=== PATIENT | male | born 1960 ===

== ENCOUNTER 2022-01-05 07:33 | Inpatient (IN) | payer OTHER ==
[~2022-01-05] VITALS: Ht 182.9 cm; Wt 110.1 kg
[2022-01-05 08:05] LABS: Source, Urine Foley catheter
[2022-01-05 08:21] LABS: PCO2 Venous 66.3 mmHg (38-42); PO2 Venous 138 mmHg (38-42); pH Blood Venous 7.15 (7.34-7.37)
[2022-01-05 08:22] LABS: Hematocrit 34.8 % (37.0-53.0); Hemoglobin 11.4 g/dL (13.5-17.5); Mean Corpuscular HGB 30.1 pg (26.0-34.0); Mean Corpuscular HGB Conc 32.8 g/dL (31.5-36.5); Mean Corpuscular Volume 92 fL (80-100); Mean Platelet Volume 10.1 fL (9.1-12.4); Platelet Count 224 K/mm3 (150-400); RDW Coefficient Variation 12.3 % (11.7-14.2); RDW Standard Deviation 41.3 fL (35.1-46.3); Red Blood Cell Count 3.79 M/mm3 (4.30-5.90); White Blood Cell Count 2.36 K/mm3 (4.00-11.30)
[2022-01-05 08:24] LABS: Appearance, Urine Hazy (Clear); Bilirubin, Urine Neg (Neg); Blood, Urine 5+ (Neg); Color, Urine Yellow (P-Yellow); Glucose Qualitative, Urine 4+ (Neg); Ketones, Urine 1+ (Neg); Leukocyte Esterase, Urine Neg (Neg); Nitrite, Urine Neg (Neg); Protein, Urine 3+ (Neg); Urobilinogen, Urine NORM (Normal)
[2022-01-05 08:35] LABS: Red Blood Cells, Urine 50-100 /hpf (0-2)
[2022-01-05 08:36] LABS: Amorphous Mod (0-Heavy); Bacteria Few /hpf; Squamous Epithelial Cells Rare /hpf (Few)
[2022-01-05 08:45] LABS: Albumin, Blood 1.5 g/dL (3.4-5.0); Albumin/Globulin Ratio 0.4 (0.8-1.8); Bilirubin, Total 0.4 mg/dL (0.1-1.0); Bun/Creatinine Ratio 11.9 (12.0-20.0); Calcium, Blood 7.1 mg/dL (8.5-10.1); Creatinine, Blood 2.36 mg/dL (0.60-1.20); Globulin, Blood 3.7 g/dL (2.2-4.0); Potassium, Blood 4.6 mmol/L (3.5-5.5); Total Protein, Blood 5.2 g/dL (6.4-8.2)
[2022-01-05 08:46] LABS: BAND PERCENT MAN 28 % (0-8); BASOPHILS PERCENT MAN 0 % (0-2); EOSINOPHILS PERCENT MAN 0 % (0-6); LYMPHOCYTES % ATYPICAL MANUAL 1 % (0-0); LYMPHOCYTES ABSOLUTE MAN 0.75 K/mm3 (0.84-5.20); LYMPHOCYTES PERCENT MAN 31 % (21-46); METAMYELOCYTE ABSOLUTE MAN 0.07 K/mm3 (0.00-0.00); METAMYELOCYTE PERCENT MAN 3 % (0-0); MONOCYTES ABSOLUTE MAN 0.14 K/mm3 (0.16-1.47); MONOCYTES PERCENT MAN 6 % (4-13); MYELOCYTE ABSOLUTE MAN 0.14 K/mm3 (0.00-0.00); MYELOCYTE PERCENT MAN 6 % (0-0); NEUTROPHILS ABSOLUTE MAN 1.25 K/mm3 (1.96-9.15); SEG NEUTROPHILS PERCENT MAN 25 % (41-73); TOTAL CELLS COUNTED 100
[2022-01-05 09:03] LABS: International Normalized Ratio 1.12; Prothrombin Time Results 11.7 Sec (9.7-11.5)
[2022-01-05 09:56] LABS: Influenza B, PCR NEGATIVE (NEGATIVE); Resp Syncytial Virus, PCR NEGATIVE (NEGATIVE); SARS-Cov-2 (COVID-19) PCR, MMC NEGATIVE (NEGATIVE)
[2022-01-05 09:58] LABS: Influenza A, PCR POSITIVE (NEGATIVE)
--- NOTE | 2022-01-05 10:43 | NUR ---
ARRIVAL TO ICU PT ARRIVES FROM [facility] VIA [facility] FOR SEPSIS AND RESP FAILURE AT 0720. ARRIVES INTUBATED AND SEDATED. CURRENT VENT SETTINGS AC/VC+ 20/450/8/65%. LUNGS COARSE, SCANT PINK SECRETIONS. TUBE RESECURED, 8.0/26 AT TEETH. PROPOFOL STARTED FOR SEDATION. NO COUGH/GAG/SWALLOW. DOES NOT WITHDRAW TO PAINFUL STIMULI. ATTEMPTED TO DECREASE SEDATION, INCREASED RR, WILL DISCUSS c DR PAREKH. SR, RATE 90'S. LEVO AND VASO GTT FOR MAP>65. MOTTLING TO KNEES AND BLE. FAINT PULSES, DELAYED CAP REFILL. OGT CLAMPED AFTER MEDS. BURT PATENT, OLIGURIC. CVC TO RIJ, DRESSING C/D/I. PIV X 2. WILL CONTINUE TO MONITOR.
--- NOTE | 2022-01-05 11:00 | NUR ---
CALL TO [facility]'S DISPATCH, REQUESTED AN OFFICER TO GO TO PT'S LISTED HOME ADDRESS AND ATTEMPT TO REACH FAMILY FOR THE PT. THEY STATED THEY HAVE DISPATCHED AN OFFICER AND WILL ATTEMPT TO LOCATE.
[2022-01-05 11:23] LABS: Base Excess Venous -7.3 mmol/L; PCO2 Venous 51.2 mmHg (38-42)
[2022-01-05 11:25] LABS: pH Blood Venous 7.21 (7.34-7.37)
--- NOTE | 2022-01-05 11:48 | NUR ---
UPDATE PT CONTINUES TO HAVE MINIMALLY ACCEPTABLE MAP~65, MOTTLING WORSE, ETCO2 DECREASING. DR PAREKH UPDATED. 1L LR INFUSED, 2 AMPS BICARB GIVEN, REPEAT VBG. PT ALSO FEBRILE, MAX 104.1, TYLENOL GIVEN, FANS AND ICE APPLIED. INSULIN GTT STARTED. EPI GTT STARTED. MEAT BLENDER CONTINUE TO ATTEMPT TO REACH FAMILY UNSUCCESSFULLY.
--- NOTE | 2022-01-05 13:04 | NUR ---
Pt resting in bed and intubated. Spoke with Primary RN Malinda. SO Veronica contacted and she will attempt to obtain transportation to visit Pt. Pt requiring 3 pressors and is running a fever. Attempted to contact Veronica, left message with request for a return phone call. SO Veronica [phone]
[2022-01-05 13:16] LABS: Bicarbonate Venous 19.8 mmol/L (24.0-30.0); PCO2 Venous 49 mmHg (38-42); pH Blood Venous 7.26 (7.34-7.37)
[2022-01-05 13:48] LABS: Bun/Creatinine Ratio 11.2 (12.0-20.0); Calcium, Blood 7.2 mg/dL (8.5-10.1); Creatinine, Blood 2.86 mg/dL (0.60-1.20); Potassium, Blood 4.4 mmol/L (3.5-5.5)
--- NOTE | 2022-01-05 17:03 | NUR ---
SO Veronica has arrived. Pt resting in bed and remains intubated. Spoke with Primary RN Malinda who reports no changes to Pt's condition. Still requiring 3 pressors with elevated temperature. Veronica at bedside. Provided update and reviewed plan of care. Offered therapeutic listening as Veronica reports not being to Pt but they have been together for 7 years. She reports Pt does not have children but does have a brother who lives in [facility]. Engaged in therapeutic discussion regarding code status wishes. Veronica reports being unsure of his wishes for CPR and is hoping Pt's brother can assist. Obtained phone number from Veronica. Attempted to call Pt's brother Rebel Raza. Number is a work number. Left message with request for a return phone call. Palliative Care will remain available.
--- NOTE | 2022-01-05 18:14 | NUR ---
SHIFT SUMMARY PT REMAINS INTUBATED AND SEDATED. VENT SETTINGS AC/VC 20/450/8/100%. PT HAD EPISODE OF POOR PERFUSION AND WAVE FORM OF O2 SATS. PLACED MULTIPLE DIFFERENT PROBES s SUCCESS. INCREASED FIO2 TO 100%. DR PAREKH AT BEDSIDE. ABG PERFORMED. WILL CONTINUE FIO2 AT 100%, O2 SAT ON MONITOR READS 60-70%. LUNGS DIM THROUGHOUT. 1 DEGREE BLOCK, RATE 80'S. LEVO, VASO AND EPI GTT FOR MAP>65. MOTTLING CONTINUE TO PROGRESS, WORSE ON RIGHT LEG, UP TO KNEES. HANDS ALSO COOL AND MOTTLED NOW. PROPOFOL GTT DECREASED TO 10 MCG/KG/MIN, CONTINUES TO BE UNRESPONSIVE. 45 ML CLOUDY URINE OUT THIS SHIFT. BURT PATENT, DRAINING TO GRAVITY. TMAX 104.1, NOW 101.4. INSULIN GTT. CVC TO MAJ, WILL CONTINUE TO MONITOR.
[2022-01-05 18:16] LABS: PCO2 Arterial 51.8 mmHg (35-45); PO2 Arterial 116 mmHg (80-100); pH Blood Arterial 7.17 (7.35-7.45)
--- NOTE | 2022-01-05 19:15 | NUR ---
ASSUMED CARE OF PT @1900 FROM CHRISTIANO GARCIA. PT SEDATED AND INTUBATED. PROPOFOL 10MCG/KG/MIN, VENT AC VC 20/450/8/100%, ETT 8.0/26 @TEETH. RR 20, SPO2 85-93%, LEVOPHED 20MCG/MIN, VASOPRESSIN 0.04 U/MIN, EPI 15MCG/MIN, HR 80'S, SBP 80-90'S, MAP 60'S. INSULIN 24U/HR. RIJ INFUSING, IV 20GA RAC AND LAC PATENT W/SALINE LOCK. BSWR IN PLACE. BURT CATH IN PLACE.
[2022-01-05 21:34] LABS: Bun/Creatinine Ratio 10.4 (12.0-20.0); Calcium, Blood 7.6 mg/dL (8.5-10.1); Creatinine, Blood 3.35 mg/dL (0.60-1.20)
[2022-01-05 22:17] LABS: PCO2 Arterial 68.5 mmHg (35-45); PO2 Arterial 91.8 mmHg (80-100)
[2022-01-05 22:18] LABS: pH Blood Arterial 7.05 (7.35-7.45)
--- NOTE | 2022-01-05 22:30 | NUR ---
CRITICAL VALUE TAKEN. DR PAREKH NOTIFIED. ORDERS UPDATED.
[2022-01-06 04:41] LABS: Hematocrit 42.2 % (37.0-53.0); Hemoglobin 13.8 g/dL (13.5-17.5); Mean Corpuscular HGB 30.3 pg (26.0-34.0); Mean Corpuscular HGB Conc 32.7 g/dL (31.5-36.5); Mean Corpuscular Volume 93 fL (80-100); Mean Platelet Volume 10.3 fL (9.1-12.4); NRBC ABSOLUTE 0.02 K/mm3 (0.00-0.02); NRBC Auto 0.4 /100 WBC (0.0-0.2); Platelet Count 181 K/mm3 (150-400); RDW Coefficient Variation 12.5 % (11.7-14.2); RDW Standard Deviation 42.7 fL (35.1-46.3); Red Blood Cell Count 4.55 M/mm3 (4.30-5.90); White Blood Cell Count 5.14 K/mm3 (4.00-11.30)
[2022-01-06 05:03] LABS: Albumin, Blood 1.3 g/dL (3.4-5.0); Albumin/Globulin Ratio 0.3 (0.8-1.8); Bun/Creatinine Ratio 9.2 (12.0-20.0); Calcium, Blood 7.8 mg/dL (8.5-10.1); Creatinine, Blood 4.25 mg/dL (0.60-1.20); Globulin, Blood 4.5 g/dL (2.2-4.0); Potassium, Blood 3.9 mmol/L (3.5-5.5); Total Protein, Blood 5.8 g/dL (6.4-8.2)
[2022-01-06 05:07] LABS: Base Excess Venous -11.2 mmol/L; Bicarbonate Venous 14.3 mmol/L (24.0-30.0)
[2022-01-06 05:08] LABS: pH Blood Venous 6.95 (7.34-7.37)
[2022-01-06 05:15] LABS: BAND PERCENT MAN 29 % (0-8); BASOPHILS PERCENT MAN 0 % (0-2); EOSINOPHILS PERCENT MAN 0 % (0-6); LYMPHOCYTES % ATYPICAL MANUAL 3 % (0-0); LYMPHOCYTES ABSOLUTE MAN 2.67 K/mm3 (0.84-5.20); LYMPHOCYTES PERCENT MAN 49 % (21-46); METAMYELOCYTE ABSOLUTE MAN 0.41 K/mm3 (0.00-0.00); METAMYELOCYTE PERCENT MAN 8 % (0-0); MONOCYTES ABSOLUTE MAN 0.15 K/mm3 (0.16-1.47); MONOCYTES PERCENT MAN 3 % (4-13); MYELOCYTE PERCENT MAN 2 % (0-0); NEUTROPHILS ABSOLUTE MAN 1.79 K/mm3 (1.96-9.15); SEG NEUTROPHILS PERCENT MAN 6 % (41-73); TOTAL CELLS COUNTED 100
--- NOTE | 2022-01-06 06:57 | NUR ---
SUMMARY: NEURO/PSYCH/MOBILITY: PT WEANED OFF PROPOFOL. NO PURPOSFUL MOVEMENTS. DOES NOT RESPOND TO NOXIOUS STIMULI. NO COUGH, GAG, OR SWALLOW W/OC. PUPILS REMAIN SMALL AND FIXED. RESTRAINTS DC'D. TMAX 102.2 AND TREATED W/PRN TYLENOL, ICE PACKS, AND FAN. MAX ASSIST FOR ALL ADL'S AND REPOSITIONING. RESP: INTUBATED. VENT AC VC 20/450/8/100%. RR <20, SPO2 >88%. LUNGS DIM THROUGHOUT. CARDIAC: CONTINUOUS CARDIAC MONITORING. LEVOPHED TITRATED TO 25MCG/MIN, VASO 0.04 U/MIN, EPI TITRATED TO 5MCG/MIN. HR 90'S THROUGHOUT SHIFT. SPIKED INTO THE 130'S AROUND 0600. SBP 60-80'S. EXTREMETIES REMAIN MOTTLED. RADIAL PULSES PALPATED FAINTLY. PEDAL PULSES DOPPLER. NO EDEMA NOTED. GI: OG TUBE LIS WHEN MEDICATIONS NOT IN TUBE. NO BM THIS SHIFT. HYPOACTIVE BOWEL SOUNDS IN ALL 4 QUADRANTS. : BURT CATH REPLACED W/16F TEMP BURT. URINALYSIS UNABLE TO BE COLLECTED THIS SHIFT DUE TO OLIGURIA. SKIN: ASSESSMENT REMAINS UNCHANGED. CL RIJ PATENT AND INFUSING. IV 20GA LAC PATENT AND INFUSING.
[2022-01-06 08:10] LABS: Source, Urine Foley catheter
[2022-01-06 08:16] LABS: Appearance, Urine Cloudy (Clear); Bilirubin, Urine Neg (Neg); Blood, Urine 5+ (Neg); Color, Urine Yellow (P-Yellow); Glucose Qualitative, Urine 3+ (Neg); Ketones, Urine Neg (Neg); Leukocyte Esterase, Urine Neg (Neg); Nitrite, Urine Neg (Neg); Protein, Urine 3+ (Neg); Urobilinogen, Urine NORM (Normal)
[2022-01-06 08:25] LABS: Amorphous Mod (0-Heavy); Bacteria Many /hpf; Red Blood Cells, Urine 25-50 /hpf (0-2)
[2022-01-06 08:26] LABS: White Blood Cells, Urine 0-2 /hpf (0-5)
[2022-01-06 08:28] LABS: Squamous Epithelial Cells Rare /hpf (Few)
--- NOTE | 2022-01-06 09:28 | NUR ---
ASSUMED CARE REPORT FROM SONAM/CELSO RN AT 0700. PT INTUBATED. NO SEDATION RUNNING. VENT SETTINGS AC/VC 24/450/8/100%. LUNGS DIM THROUGHOUT. NO SECRETIONS. PT OVERBREATHS VENT, RR 26. NO COUGH/GAG/SWALLOW, DOES NOT WITHDRAW FROM PAIN. NO CORNEAL REFLEX. NO MOVEMENT NOTED TO EXT. 1 DEGREE AV BLOCK, RATE 110'S. PULSES BY DOPPLER. LEVO, VASO, EPI GTT INFUSING FOR MAP>65. MOTTLING TO BLE, WORSE ON RLE, ALSO MOTTLED TO HAND. SKIN COOL. TEMP 101.2. FAN IN PLACE. ABD ROUND, SOFT, NON TENDER. HYPOACTIVE BT. OLIGURIC. TEMP PROBE BURT PATENT, DRAINING TO GRAVITY. INSULIN GTT INFUSING. q1 HR CBG. BICARB GTT. CVC TO RIJ. DRESSING C/D/I. WILL CONTINUE TO MONITOR.
[2022-01-06 10:22] LABS: Bicarbonate Venous 20.5 mmol/L (24.0-30.0); PCO2 Venous 61.6 mmHg (38-42); pH Blood Venous 7.21 (7.34-7.37)
[2022-01-06 12:50] LABS: Base Excess Venous -4.8 mmol/L; Bicarbonate Venous 19.7 mmol/L (24.0-30.0); PCO2 Venous 54.2 mmHg (38-42); pH Blood Venous 7.23 (7.34-7.37)
--- NOTE | 2022-01-06 14:27 | NUR ---
SHIFT SUMMARY/REPORT TO JOY NO ACUTE CHANGES THIS SHIFT. VENT SETTINGS ADJUSTED, AC/VC 24/560/10/100%. LUNGS DIM. NO SECRETIONS. REMAINS ON PRESSORS, LEVO, VASO AND EPI, NO ESCALATION OF PRESSORS PER DR PAREKH. INSULIN GTT OFF, CBG NOW q4. NEURO UNCHANGED, NO RESPONSE OTHER THAN BREATHING OVER VENT. HEAD CT COMPLETE THIS SHIFT. FEBRILE, TYLENOL GIVEN, FANS AND ICE. NO URINE OUTPUT. LEGS AND HAND CONTINUE TO BE COOL AND MOTTLED. REPORT TO JOY FOR REMANDER OF SHIFT.
--- NOTE | 2022-01-06 15:00 | NUR ---
ASSUMED CARE OF PT AT THIS TIME. PT CONTINUES TO BE HYPOTENSIVE DESPITE MAX ADMIN OF PRESSORS. STILL ATTEMPTING TO CONTACT FURTHER FAMILY.
--- NOTE | 2022-01-06 17:05 | NUR ---
SPOKE WITH PT BROTHER IN [place] UPDATED ON PT CONDITION AND CONNECTED PT BROTHER WITH PALLIATIVE CARE.
--- NOTE | 2022-01-06 17:48 | NUR ---
Message left for pt's brother Rebel, and he did return the call. He was tearful upon finding out the brother's current situation, but states he's not completely suprised either. States pt's health was "not great". Rebel is planning to fly to [place] tomorrow from [place], and has concerns if pt passes away before he arrives. He states he has been paying the pt's utility bills and rent for quite some time, and is currently having financial hardships himself. He asked how to pick a mortuary if there is no "for sure" payer source. Per Nursing Climate Change Analyst, there is a rotation of homes in [facility], and the next one in line is called when there isn't one chosen. I relayed this information to Rebel, who states he will check in with ICU when he arrives tomorrow, and will see pt if he is still with us. If not, he will need to know which mortuary to call. Condolences given. Palliative care will remain available.
--- NOTE | 2022-01-06 19:15 | NUR ---
ASSUMED CARE OF PT @1900 FROM JOY GARCIA. PT INTUBATED, ETT 8.0, 27@LIPS, AC VC 24/560/10/100%. RR 24, UNABLE TO ATTAIN SPO2. CONTINUOUS CARDIAC MONITORING. LEVOPHED 25MCG/MIN, EPI 6MCG/MIN, VASOPRESSIN 0.04U/MIN, SODIUM BICARB 100MLS/HR. HR 80'S, SBP 60-80'S, MAP 40'S. RIJ CL PATENT AND INFUSING. IV 20GA LAC PATENT W/SALINE LOCK. TEMP BURT DRAINING SMALL AMOUNT OF URINE TO GRAVITY. ICE BAGS AND FAN ON PT FOR FEVER.
--- NOTE | 2022-01-06 19:26 | NUR ---
SHIFT SUMMARY NO ACUTE CHANGES, PT CONTINUES TO DECLINE T/O SHIFT IN REGARDS TO BP AND PERFUSION. EXTREM REMAIN COLD AND MOTTLED. CONTINUES TO HAVE PRESSORS INFUSING SEE FLOWSHEET. NO ESCALATION IN CARE PER DR. PAREKH. PT. FAMILY UPDATED ON CONDTION. REPORT TO ONCOMING NURSE.
--- NOTE | 2022-01-06 19:30 | NUR ---
ADRIENNE MAURICE ON TELEPHONE AND GAVE UPDATE ON PT CONDITION. SHE LIVES IN [place] AND IS CONCERNED ABOUT DRIVING IN THE WEATHER THEIR CAR IS NOT RELIABLE AND SHE HAS NOT DRIVEN IN MANY YEARS. DISCUSSED SITUATION AND SAFETY, SHE WILL WAIT UNTIL MORNING AND RIDE DOWN WITH PT'S BROTHER. WE WILL CALL W/ANY UPDATES IN PT CONDITION.
[2022-01-07 00:38] LABS: Albumin/Globulin Ratio 0.3 (0.8-1.8); Bilirubin, Total 1.3 mg/dL (0.1-1.0); Calcium, Blood 6.8 mg/dL (8.5-10.1); Creatinine, Blood 4.91 mg/dL (0.60-1.20); Globulin, Blood 3.9 g/dL (2.2-4.0); Potassium, Blood 6.1 mmol/L (3.5-5.5); Total Protein, Blood 4.9 g/dL (6.4-8.2)
--- NOTE | 2022-01-07 01:01 | NUR ---
UPDATE: 2299: CBG CL OF 29, HYPOGLYCEMIA PROTOCOL FOLLOWED, GAVE 50MLS 50% DEXTROSE IV. RECHECK LABS DRAWN 1 HOUR POST DEXTROSE. 2357: LAB CALLED CH POTASSIUM 6.1, BG HIGH @377, CA LOW @6.8, DR SNIDER CALLED AND UPDATED. ORDERS FOR REGULAR INSULIN 10 UNITS IV NOW AND RECHECK CBG W/MORNING LABS.
--- NOTE | 2022-01-07 02:56 | NUR ---
ADRIENNE MAURICE ON TELEPHONE AND GAVE UPDATE.
[2022-01-07 03:11] LABS: Vancomycin, Trough 31.3 ug/mL (5.0-10.0)
[2022-01-07 03:16] LABS: Hematocrit 35.8 % (37.0-53.0); Hemoglobin 11.9 g/dL (13.5-17.5); Mean Corpuscular HGB 30.1 pg (26.0-34.0); Mean Corpuscular HGB Conc 33.2 g/dL (31.5-36.5); Mean Corpuscular Volume 90 fL (80-100); NRBC ABSOLUTE 0.13 K/mm3 (0.00-0.02); NRBC Auto 2.4 /100 WBC (0.0-0.2); Platelet Count 73 K/mm3 (150-400); RDW Coefficient Variation 12.9 % (11.7-14.2); RDW Standard Deviation 42.7 fL (35.1-46.3); Red Blood Cell Count 3.96 M/mm3 (4.30-5.90); White Blood Cell Count 5.47 K/mm3 (4.00-11.30)
[2022-01-07 03:32] LABS: Albumin/Globulin Ratio 0.2 (0.8-1.8); Bilirubin, Total 1.3 mg/dL (0.1-1.0); Bun/Creatinine Ratio 9.9 (12.0-20.0); Creatinine, Blood 5.13 mg/dL (0.60-1.20); Potassium, Blood 6.1 mmol/L (3.5-5.5)
[2022-01-07 06:06] LABS: BAND PERCENT MAN 45 % (0-8); BASOPHILS PERCENT MAN 0 % (0-2); EOSINOPHILS PERCENT MAN 0 % (0-6); LYMPHOCYTES ABSOLUTE MAN 1.96 K/mm3 (0.84-5.20); LYMPHOCYTES PERCENT MAN 32 % (21-46); METAMYELOCYTE ABSOLUTE MAN 0.21 K/mm3 (0.00-0.00); METAMYELOCYTE PERCENT MAN 4 % (0-0); MONOCYTES ABSOLUTE MAN 0.27 K/mm3 (0.16-1.47); MONOCYTES PERCENT MAN 5 % (4-13); MYELOCYTE PERCENT MAN 2 % (0-0); NEUTROPHILS ABSOLUTE MAN 2.89 K/mm3 (1.96-9.15); SEG NEUTROPHILS PERCENT MAN 8 % (41-73); TOTAL CELLS COUNTED 100
[2022-01-07 06:10] LABS: LYMPHOCYTES % ATYPICAL MANUAL 4 % (0-0)
--- NOTE | 2022-01-07 06:33 | NUR ---
SUMMARY NEURO/PSYCH/MOBILITY: NO CHANGES OVERNIGHT. PT DOES NOT RESPOND TO NOXIOUS STIMULI OR ORAL CARE. NO PURPOSEFUL MOVEMENT/FLACCID EXTREMETIES. PUPILS FIXED AND UNEQUAL. NO EYE MOVEMENT. TMAX 102.1. TYLENOL GIVEN. PT MAX ASSIST FOR ALL ADL'S. RESP: DIM LUNG SOUNDS THROUGHOUT. PT IS OVER BREATHING THE VENT. RR 26, UNABLE TO ATTAIN SPO2 READING. AC VC 24/260/10/100. CARDIAC: CONTINUOUS CARDIAC MONITORING. HR AFIB 70-80'S, SBP 80-120'S, MAP 40-70'S, EPINEPHERINE 6MCG/MIN, LEVOPHED 25MCG/MIN, VASOPRESSIN 0.04U/MIN. GI: OG TUBE CLAMPED. HYPOACTIVE BT. NO BM THIS SHIFT. : TEMP BURT DRAINING TO GRAVITY. OLIGURIC. SKIN: ASSESSMENT REMAINS UNCHANGED. COCCYX MEPILEX CHANGED. RIJ CL PATENT AND INFUSING. IV 20GA LAC PATENT W/SALINE LOCK.
--- NOTE | 2022-01-07 06:45 | NUR ---
JAKE PEREA (BROTHER) CALLED FOR UPDATE. STATES HE IS FLYING INTO [place] FROM [place] AND WILL LAND AT 3PM. WILL RENT A CAR AND DRIVE DOWN TO [place] WITH HOPES TO ARRIVE THIS EVENING.
--- NOTE | 2022-01-07 07:26 | NUR ---
ASSUMED CARE: PT INTUBATED, NO SEDATION. VENT SETTINGS AC/VC 24/560/10/100%. ATTEMPTED TO OBTAIN O2 SAT WITH NASAL PROBE BUT UNABLE TO OBTAIN READ. FINGERS AND TOES MOTTLED AND COLD T/O. PUPILS NOT EQUAL. RIGHT EYE 4, LEFT EYE 3. PUPILS FIXED AND NOT REACTIVE TO LIGHT. NO PURPOSEFUL MOVEMENT, NOT REACTIVE TO NOXIOUS STIMULI SUCH TRAPEZIUS SQUEEZE. MOTTLED FINGER AND LEGS FROM KNEES TO TOES. DOPPLER USED TO FIND FAINT RADIAL PULSES. UNABLE TO FIND PULSES IN BILATERAL FEET WITH DOPPLER. PT CURRENTLY NSR AT 76 ON TELE. EPI RUNNING AT 6MCG/MIN. LEVOPHED AT 25MCG/MIN. VASOPRESSIN AT 0.4. OG IN PLACE AND CLAMPED. BURT CATH IN PLACE WITH NO NOTED URINE. MIXER LEVER OPERATOR REPORTS SCANT OUTPUT.
[2022-01-07 09:54] LABS: Bun/Creatinine Ratio 10.2 (12.0-20.0); Calcium, Blood 6.7 mg/dL (8.5-10.1); Creatinine, Blood 5.09 mg/dL (0.60-1.20); Potassium, Blood 6.4 mmol/L (3.5-5.5)
--- NOTE | 2022-01-07 12:00 | NUR ---
PT'S MOTTLING TO LEGS APPEARS DARKER PURPLE THAN THIS AM. VENT SETTINGS AND PRESSOR SETTINGS UNCHANGED. NEURO STATUS REMAINS THE SAME THIS AM WITH NO RESPONSE TO NOXIOUS STIMULI. NO URINE OUTPUT SINCE THIS AM.
--- NOTE | 2022-01-07 15:51 | NUR ---
PT'S BROTHER CALLED FOR UPDATE ON HIS BROTHER. STATES HE JUST LANDED IN [place]. LET HIM KNOW THE SITUATION AND STATES THAT HE IS AWARE THAT PT IS NOT DOING WELL AND HAS MULTIPLE ORGAN SYSTEMS SHUTTING DOWN. STATES HE IS ON HIS WAY AND WILL BE HERE THIS EVENING.
--- NOTE | 2022-01-07 18:32 | NUR ---
SHIFT SUMMARY: PT'S VENT SETTINGS AND PRESSOR SETTINGS REMAIN THE SAME. PT'S BLOOD PRESSURE HAS BEEN TRENDING DOWN SINCE 1700. PT'S BROTHER IS ON THE WAY TO SEE PT FROM [facility]. PT'S NEURO STATUS REMAINS UNCHANGED AND SKIN IS BECOMING MORE MOTTLED AND COOL FROM TOES TO KNEES. DOSE OF TYLENOL GIVEN FOR FEVER. MEDICATED FOR HYPERKALEMIA X2 TODAY. NO ACUTE NEEDS AT THIS TIME.
--- NOTE | 2022-01-07 20:30 | NUR ---
PT UPDATED: PT'S BROTHER, HOWIE, BY JOSE M AT 2030 TO SEE PT. HE WAS UPDATED ON PT'S STATUS AND ALL QUESTIONS ANSWERED AT THIS TIME. HOWIE STATED HE WOULD BE BACK IN THE MORNING TO TALK WITH LISA PALLIATIVE RN AND PT'S S/O, JOSAFAT, WOULD BE DRIVING DOWN TO SEE THE PT.
--- NOTE | 2022-01-07 21:24 | NUR ---
ASSUMPTION OF CARE/ASSESSMENT: ASSUMED CARE OF PT AT 1900. PT IS INTUBATED AND NOT SEDATED AT THIS TIME; VENT SETTINGS AC/VC 24/560/10/100%. LEVO GTT 25 MCG, VASO GTT 0.04 UNITS, EPI GTT 6 MCG, AND BICARB GTT 100 MLS/HR. PT IS NOT SHOWING ANY PURPOSEFUL MOVEMENTS AT THIS TIME OR RESPONDING TO NOXIOUS STIMULI. THE PT'S PUPILS ARE UNEQUAL AND UNRESPONSIVE TO LIGHT. PT IS FLACCID AND REQUIRING MAX ASSIST WITH TURNS/REPOSITIONING. PT SBP 90-100'S AND HR 80'S. RR 26-28 AND UNABLE TO OBTAIN ACCURATE SPO2 READING AT THIS TIME. PT HAS CLEAR LUNG SOUNDS IN UPPER LOBE AND DIM IN MID-BASES. PT HAS HYPOACIVE BS IN ALL QUADRANTS; OGT IN PLACE AND CLAMPED. OGT USED FOR MED ADMINISTRATION AND FLUSHES EASILY. PT HAS TEMP BURT IN PLACE THAT IS DRAINING TO GRAVITY BUT NO URINE OUTPUT AT THIS TIME. PT SKIN IS VERY COOL IN DIGITS AND MOTTLING FROM TOES TO KNEES NOTED. UNABLE TO FIND PEDAL PULSES WITH DOPPLER, RADIAL PULSE FELT VERY FAINTLY. FINGER NAILS ARE PALE. CENTRAL LINE LIJ INFUSING, 20 G LAC FLUSHED AND ORANGE CAP IN PLACE. WILL CONTINUE TO MONITOR.
--- NOTE | 2022-01-08 00:56 | NUR ---
PT UPDATE: PT GIVEN BED BATH AND TURNED ONTO LEFT SIDE. AFTER THIS RN LEFT THE ROOM IT WAS NOTICED ON THE MONITOR THAT THE PT'S WENT BRADYCARDIC DOWN TO THE 40-50'S. THIS RN WENT INTO THE ROOM TO ASSESS AND THEN THE PT'S RYTHYM WENT INTO ASYSTOLE. NO PULSES WERE HEARD OVER DOPPLER AND NO APICAL HEART SOUNDS HEARD. 2ND RN CHECKED WITH NARINDER GONZÁLES. TIME OF CALLED AT 0040.
--- NOTE | 2022-01-08 01:37 | NUR ---
FAMILY NOTIFICATION BROTHER HOWIE NOTIFIED VIA TELEPHONE. ATTEMPING TO REACH SPOUSE JOSAFAT.
== END 2022-01-08 00:40 | DRG 871 ==
LOC: ICUW 07:33 → ICUE 07:33 → ICUW 07:33
PROVIDERS: Family Medicine; Internal Medicine; Internal Medicine Critical Care Medicine; ADMIT Family Medicine
PROC: 5A1945Z Respiratory Ventilation, 24-96 Consecutive Hours (ICD-10-PCS; principal; 2022-01-05)
PROC: 3E03329 Introduction of Other Anti-infective into Peripheral Vein, Percutaneous Approach (ICD-10-PCS; 2022-01-05)
PROC: 3E033XZ Introduction of Vasopressor into Peripheral Vein, Percutaneous Approach (ICD-10-PCS; 2022-01-05)
DX: A41.89 Other specified sepsis (principal); E11.10 Type 2 diabetes mellitus with ketoacidosis without coma; J10.01 Influenza due to other identified influenza virus with the same other identified influenza virus pneumonia; J96.01 Acute respiratory failure with hypoxia; R65.21 Severe sepsis with septic shock; G93.6 Cerebral edema; J96.02 Acute respiratory failure with hypercapnia; N17.0 Acute kidney failure with tubular necrosis; I63.89 Other cerebral infarction; E87.1 Hypo-osmolality and hyponatremia; E87.4 Mixed disorder of acid-base balance; G93.49 Other encephalopathy; Z51.5 Encounter for palliative care; Z66 Do not resuscitate; E87.6 Hypokalemia; Z20.822 Contact with and (suspected) exposure to COVID-19; R57.0 Cardiogenic shock
CPT/HCPCS: 0241U; 36415; 36600; 51702; 70450; 71045; 80048; 80053; 80202; 81001; 82140; 82330; 82803; 82947; 83605; 83880; 84132; 84484; 85025; 85610; 85730; 87040; 87086; 93306; 94002; 94003; 94644; 94664; A9270; C9113; J0171; J1644; J1720; J1815; J2543; J2704; J3010; J3370; J7050; J7060; J7120